=== PATIENT | female | born 1995 | race Caucasian/White ===

== ENCOUNTER 2017-02-24 08:50 | Emergency (ER) | payer SELFPAY ==
[2017-02-24] MEDS ORDERED: IBUPROFEN 600 MG TAB PO STA (10:08)
[2017-02-24] MEDS ORDERED: ACETAMINOPHEN TAB 500 MG TAB PO STA (10:08)
--- NOTE | 2017-02-24 10:15 | ED ---
URI HPI - General Chief Complaint: Upper Respiratory Infection Stated Complaint: COUGHING Source: patient, RN notes reviewed Mode of arrival: ambulatory - History of Present Illness Initial Comments: 22 yo female presents with chief complaint of cough cold like symptoms. Patient states she's had a cough ear pain throat pain and headache nausea for the past 3 or 4 days. Patient states every day just seems to be worsening. Patient denies any body aches. Patient states that she has been able to eat and drink but she just feels ill. Patient states she was concerned because she continued to worsen so she thought that she should be evaluated. Patient denies any back pain with this states that she has had a little better. She will. Patient denies any neck pain. Patient denies any recent shortness of breath, chest pain, back pain, abdominal pain, vomiting, numbness or tingling, dysuria or hematuria, constipation or diarrhea, headaches or visual changes, or any other current symptoms. - Related Data Home Medications Medication Instructions Recorded Confirmed Acetaminophen [Tylenol] 650 mg PO Q4H PRN 02/24/17 02/24/17 Previous Rx's Medication Instructions Recorded Albuterol Inhaler [Ventolin Hfa 1 - 2 puff INHALATION Q4-6H PRN #1 02/24/17 Inhaler] inhaler predniSONE 50 mg PO DAILY #5 tab 02/24/17 Allergies Allergy/AdvReac Type Severity Reaction Status Date / Time clindamycin Allergy Rash/Hives Verified 02/24/17 09:49 erythromycin base Allergy Rash/Hives Verified 02/24/17 09:49 Penicillins Allergy Unknown Verified 02/24/17 09:49 Childhood pineapple Allergy Swelling Verified 02/24/17 09:49 Review of Systems ROS Statement: Those systems with pertinent positive or pertinent negative responses have been documented in the HPI. ROS Other: All systems not noted in ROS Statement are negative. Past Medical History Additional Past Medical History / Comment(s): migraines History of Any Multi-Drug Resistant Organisms: None Reported Past Surgical History: No Surgical Hx Reported Past Psychological History: No Psychological Hx Reported Smoking Status: Former smoker Past Alcohol Use History: None Reported Past Drug Use History: Marijuana General Exam - General Exam Comments Initial Comments: General exam: Alert, active, comfortable in no apparent distress Head: Normocephalic Eyes: Normal reaction of pupils, equal size, normal range of extraocular motion Ears: normal external ear canals, pink tympanic membranes with normal cone of light Nose: clear with pink turbinates Throat: no erythema or exudates with normal sized tonsils Neck: no masses, no nuchal rigidity Chest: no chest wall deformity Lungs: equal air entry with no crackles with minimal wheeze CVS: S1 and S2 normal with no audible mumurs, regular rhythm Abdomen: no hepatosplenomegaly, normal bowel sounds, no guarding or rigidity Spine: no scoliosis or deformity Skin: no rashes Neurological: No focal deficits, tone is normal in all 4 extremities Course Vital Signs 02/24/17 02/24/17 09:10 10:08 Temperature 98.5 F 97.8 F Pulse Rate 64 60 Respiratory 18 18 Rate Blood Pressure 151/74 111/61 O2 Sat by Pulse 96 97 Oximetry Medical Decision Making - Medical Decision Making 22-year-old female presents emergency Department chief complaint of cough cold runny nose like symptoms. At this time patient does appear to have bronchitis on chest x-ray with minimal wheeze. We'll start her on steroids and an inhaler for home. We did give her a DuoNeb prior to discharge. As discussed with patient and she is in agreement with the plan. All questions have been answered. She will be discharged home. - Lab Data Lab Results 02/24/17 02/24/17 Range/Units 10:10 10:10 Influenza Type A RNA Not Detected (Not Detectd) Influenza Type B (PCR) Not Detected (Not Detectd) Group A Strep Rapid Negative (Negative) Disposition Clinical Impression: Acute bronchitis Disposition: HOME SELF-CARE Condition: Stable Instructions: Acute Bronchitis (ED) Additional Instructions: Please use medication as discussed. Please follow up with family doctor if symptoms have not improved over the next two days. Please return to the emergency room if your symptoms increase or worsen or for any other concerns. Prescriptions: Albuterol Inhaler [Ventolin Hfa Inhaler] 1 - 2 puff INHALATION Q4-6H PRN #1 inhaler PRN Reason: Cough predniSONE 50 mg PO DAILY #5 tab Referrals: Zach Fernández MD [Primary Care Provider] - 1-2 days Time of Disposition: 11:32
--- NOTE | 2017-02-24 11:20 | XR ---
EXAMINATION TYPE: XR chest 2V DATE OF EXAM: 02/24/2017 11:08 AM COMPARISON: 01/13/1998 HISTORY: 22-year-old female with cough TECHNIQUE: PA and lateral views FINDINGS: The cardiomediastinal silhouette, aorta, and pulmonary vasculature are within normal limits. Some per ibronchial cuffing. Otherwise, lungs and pleural spaces are clear. IMPRESSION: Some peribronchial cuffing could represent bronchitis or chronic asthma. No acute infiltrate.
[2017-02-24] MEDS ORDERED: IPRATROPIUM-ALBUTEROL 3 ML NEB INHALATION STA (11:27)
[2017-02-24 12:02] VITALS: BP 120/67; PULSE 54; RESP 16; TEMP 98.4
== END 2017-02-24 12:00 | disposition home or self-care (01) ==
LOC: EC 08:50
DX: J20.9 Acute bronchitis, unspecified (principal); R11.0 Nausea; Z87.891 Personal history of nicotine dependence; Z88.0 Allergy status to penicillin; Z88.1 Allergy status to other antibiotic agents; Z91.018 Allergy to other foods
CPT/HCPCS: 71020; 87430; 87502; 94640; 99284

== ENCOUNTER 2019-03-10 10:38 | Emergency (ER) | payer BC, OTHER ==
[2019-03-10 10:51] VITALS: RESP 20
[2019-03-10] MEDS ORDERED: SODIUM CHLORIDE 0.9% 1,000 ML IV ONE (12:05)
[2019-03-10] MEDS ORDERED: ONDANSETRON 4 MG/2 ML VIAL IVP STA (12:05)
[2019-03-10] MEDS ORDERED: KETOROLAC 30 MG/ML 1 ML VIAL IVP STA (12:05)
[2019-03-10] MEDS ORDERED: SODIUM CHLORIDE 0.9% 1,000 ML IV SCH (12:15)
[2019-03-10 12:53] LABS: Basophils % (A) 0 %; Eosinophils # (A) 0.1 k/uL (0-0.7); Eosinophils % (A) 1 %; HCT 42.5 % (34.0-46.0); HGB 13.8 gm/dL (11.4-16.0); Lymphocytes # (A) 1.1 k/uL (1.0-4.8); Lymphocytes % (A) 13 %; MCH 26.4 pg (25.0-35.0); MCHC 32.5 g/dL (31.0-37.0); MCV 81.3 fL (80.0-100.0); Mean Platelet Volume 7.8; Monocytes # (A) 0.5 k/uL (0-1.0); Monocytes % (A) 6 %; Neutrophils # (A) 6.9 k/uL (1.3-7.7); Neutrophils % (A) 79 %; Platelet Count 235 k/uL (150-450); RBC 5.23 m/uL (3.80-5.40); RDW 13.1 % (11.5-15.5); WBC 8.8 k/uL (3.8-10.6)
--- NOTE | 2019-03-10 12:55 | ED ---
General Adult HPI - General Chief complaint: Upper Respiratory Infection Stated complaint: wants flu swab Time Seen by Provider: 03/10/19 11:33 Source: patient, RN notes reviewed, old records reviewed Mode of arrival: ambulatory Limitations: no limitations - History of Present Illness Initial comments: 24-year-old female presents for his hours a with cough congestion runny nose. Patient states that she is having some vomiting and diarrhea for the past 2 days. She denies any chest pain or shortness breath. - Related Data Previous Rx's Medication Instructions Recorded Ondansetron Odt [Zofran Odt] 4 mg PO Q8HR PRN #12 tab 03/10/19 Allergies Allergy/AdvReac Type Severity Reaction Status Date / Time clindamycin Allergy Rash/Hives Verified 03/10/19 11:16 erythromycin base Allergy Rash/Hives Verified 03/10/19 11:16 Penicillins Allergy Unknown Verified 03/10/19 11:16 Childhood pineapple Allergy Swelling Verified 03/10/19 11:16 Review of Systems ROS Statement: Those systems with pertinent positive or pertinent negative responses have been documented in the HPI. ROS Other: All systems not noted in ROS Statement are negative. Past Medical History Additional Past Medical History / Comment(s): migraines History of Any Multi-Drug Resistant Organisms: None Reported Past Surgical History: No Surgical Hx Reported Past Psychological History: No Psychological Hx Reported Smoking Status: Former smoker Past Alcohol Use History: None Reported Past Drug Use History: Marijuana General Exam Limitations: no limitations Course Vital Signs 03/10/19 10:48 Temperature 98.8 F Pulse Rate 97 Respiratory 20 Rate Blood Pressure 129/74 O2 Sat by Pulse 97 Oximetry Medical Decision Making - Lab Data Result diagrams: 03/10/19 12:38 03/10/19 12:38 Lab Results 03/10/19 03/10/19 03/10/19 Range/Units 11:36 12:38 12:38 WBC 8.8 (3.8-10.6) k/uL RBC 5.23 (3.80-5.40) m/uL Hgb 13.8 (11.4-16.0) gm/dL Hct 42.5 (34.0-46.0) % MCV 81.3 (80.0-100.0) fL MCH 26.4 (25.0-35.0) pg MCHC 32.5 (31.0-37.0) g/dL RDW 13.1 (11.5-15.5) % Plt Count 235 (150-450) k/uL Neutrophils % 79 % Lymphocytes % 13 % Monocytes % 6 % Eosinophils % 1 % Basophils % 0 % Neutrophils # 6.9 (1.3-7.7) k/uL Lymphocytes # 1.1 (1.0-4.8) k/uL Monocytes # 0.5 (0-1.0) k/uL Eosinophils # 0.1 (0-0.7) k/uL Basophils # 0.0 (0-0.2) k/uL Sodium 138 (137-145) mmol/L Potassium 4.5 (3.5-5.1) mmol/L Chloride 103 (98-107) mmol/L Carbon Dioxide 24 (22-30) mmol/L Anion Gap 11 mmol/L BUN 9 (7-17) mg/dL Creatinine 0.56 (0.52-1.04) mg/dL Est GFR (CKD-EPI)AfAm >90 (>60 ml/min/1.73 sqM) Est GFR (CKD-EPI)NonAf >90 (>60 ml/min/1.73 sqM) Glucose 94 (74-99) mg/dL Calcium 9.6 (8.4-10.2) mg/dL Total Bilirubin 0.7 (0.2-1.3) mg/dL AST 23 (14-36) U/L ALT 30 (9-52) U/L Alkaline Phosphatase 81 (38-126) U/L Total Protein 7.9 (6.3-8.2) g/dL Albumin 4.7 (3.5-5.0) g/dL Influenza Type A RNA Not Detected (Not Detectd) Influenza Type B (PCR) Not Detected (Not Detectd) Disposition Clinical Impression: Viral syndrome, Nausea & vomiting Disposition: HOME SELF-CARE Condition: Good Instructions (If sedation given, give patient instructions): Upper Respiratory Infection (ED), Acute Nausea and Vomiting (ED) Additional Instructions: Patient has follow-up with primary care doctor. Return to emergency department if any alarming symptoms occur. Take the nausea medicine as needed. Alternating to Motrin and Tylenol as discussed. Prescriptions: Ondansetron Odt [Zofran Odt] 4 mg PO Q8HR PRN #12 tab PRN Reason: Nausea Is patient prescribed a controlled substance at d/c from ED?: No Referrals: Zach Fernández MD [Primary Care Provider] - 1-2 days Time of Disposition: 14:28
[2019-03-10 13:04] LABS: ALT 30 U/L (9-52); AST 23 U/L (14-36); Albumin 4.7 g/dL (3.5-5.0); Alkaline Phosphatase 81 U/L (38-126); Anion Gap 11 mmol/L; Blood Urea Nitrogen 9 mg/dL (7-17); Calcium 9.6 mg/dL (8.4-10.2); Carbon Dioxide 24 mmol/L (22-30); Chloride 103 mmol/L (98-107); Glucose 94 mg/dL (74-99); Potassium 4.5 mmol/L (3.5-5.1); Sodium 138 mmol/L (137-145); Total Bilirubin 0.7 mg/dL (0.2-1.3); Total Protein 7.9 g/dL (6.3-8.2)
--- NOTE | 2019-03-10 14:22 | XR ---
EXAMINATION TYPE: XR chest 2V DATE OF EXAM: 03/10/2019 COMPARISON: NONE HISTORY: Cough, nausea, vomiting and headache TECHNIQUE: Frontal and lateral views of the chest are obtained. FINDINGS: There is no focal air space opacity, pleural effusion, or pneumothorax seen. The cardiac silhouette size is within normal limits. The osseous structures are intact. IMPRESSION: No acute cardiopulmonary process.
[2019-03-10 14:41] VITALS: BP 128/69; PULSE 72; TEMP 98.9
== END 2019-03-10 14:40 | disposition home or self-care (01) ==
LOC: EC 10:38
DX: B34.9 Viral infection, unspecified (principal); R11.2 Nausea with vomiting, unspecified; Z87.891 Personal history of nicotine dependence; Z88.0 Allergy status to penicillin; Z88.1 Allergy status to other antibiotic agents; Z91.018 Allergy to other foods
CPT/HCPCS: 36415; 80053; 85025; 87502; 71046; 99284; 96374; 96375; 96361 ×2; J2405; J1885

== ENCOUNTER 2019-06-06 11:05 | Emergency (ER) | payer OTHER ==
[2019-06-06 11:30] VITALS: BP 121/84; PULSE 57; RESP 16; TEMP 98.1
--- NOTE | 2019-06-06 12:00 | ED ---
ENT HPI - General Chief complaint: ENT Stated complaint: Headhache, puffy eyes Time Seen by Provider: 06/06/19 11:46 Source: patient Mode of arrival: ambulatory Limitations: no limitations - History of Present Illness Initial comments: Patient is a 24-year-old female presenting to emergency Department with complaints of irritation of the right eye 2 days. Patient states she wears contacts ones and slept in her contacts 2 days ago. Patient states she woke up the next 2 mornings with yellow crusting of her right eye and some irritation. Patient states today her eyes seems to be a little bit red and the crusting has continued. Patient states she has not worn her contacts since she slept in them and then has been wearing her glasses. Patient denies any fever, chills, or changes in her vision. Patient has no other complaints at this time. - Related Data Previous Rx's Medication Instructions Recorded Ondansetron Odt [Zofran Odt] 4 mg PO Q8HR PRN #12 tab 03/10/19 Levofloxacin 0.5% Ophth Soln 1 drop RIGHT EYE Q6HR 5 Days #1 06/06/19 [Quixin Ophth Soln] bottle Polymyxin B-Trimeth Sulf Ophth 1 drops RIGHT EYE Q4H 7 Days #1 06/06/19 [Polytrim Opthalmic] bottle Allergies Allergy/AdvReac Type Severity Reaction Status Date / Time clindamycin Allergy Rash/Hives Verified 06/06/19 11:30 erythromycin base Allergy Rash/Hives Verified 06/06/19 11:30 Penicillins Allergy Unknown Verified 06/06/19 11:30 Childhood pineapple Allergy Swelling Verified 06/06/19 11:30 Review of Systems ROS Statement: Those systems with pertinent positive or pertinent negative responses have been documented in the HPI. ROS Other: All systems not noted in ROS Statement are negative. Past Medical History Additional Past Medical History / Comment(s): migraines History of Any Multi-Drug Resistant Organisms: None Reported Past Surgical History: No Surgical Hx Reported Past Psychological History: No Psychological Hx Reported Smoking Status: Former smoker Past Alcohol Use History: None Reported Past Drug Use History: Marijuana General Exam - General Exam Comments Initial Comments: GENERAL: Well-appearing, well-nourished and in no acute distress. HEAD: Atraumatic, normocephalic. EYES: Pupils equal round and reactive to light, extraocular movements intact, sclera anicteric, conjunctiva are normal. Patient has some mild yellow discharge from the right eye. There is some mild surrounding erythema. ENT: Nares patent, oropharynx clear without exudates. Moist mucous membranes. NECK: Normal range of motion, supple without lymphadenopathy or JVD. LUNGS: Breath sounds clear to auscultation bilaterally and equal. No wheezes rales or rhonchi. HEART: Regular rate and rhythm without murmurs, rubs or gallops. ABDOMEN: Soft, nontender, normoactive bowel sounds. No guarding, no rebound. No masses appreciated. : Deferred EXTREMITIES: Normal range of motion, no pitting or edema. No clubbing or cyanosis. NEUROLOGICAL: Cranial nerves II through XII grossly intact. Normal speech, normal gait. PSYCH: Normal mood, normal affect. SKIN: Warm, Dry, normal turgor, no rashes or lesions noted. Limitations: no limitations Course Vital Signs 06/06/19 11:27 Temperature 98.1 F Pulse Rate 57 L Respiratory 16 Rate Blood Pressure 121/84 O2 Sat by Pulse 94 L Oximetry Medical Decision Making - Medical Decision Making Patient is a 24-year-old female complaining of right eye irritation and mild redness x 2 days. Patient states she slipped in her contact lens approximately 2 days ago and the next morning she had some clear to yellow discharge from the eye and then again this morning. Patient states she noticed a little bit of redness and puffiness of her right eyes she decided to come in. On exam patient has some very mild yellow discharge from the right eye and some mild surrounding erythema. Patient's visual acuity is normal. Patient will be given antibiotic eyedrops to use to prevent infection. Discussed with patient not asleep in her contact lens and to not use her contact lens for another week. Patient will follow up with ophthalmology if symptoms continue or worsen. Return parameters were discussed with patient she verbalized understanding. Patient will be discharged home. Disposition Clinical Impression: Conjunctivitis, right eye Disposition: HOME SELF-CARE Condition: Stable Instructions (If sedation given, give patient instructions): Conjunctivitis (ED) Additional Instructions: Please return to the Emergency Department if symptoms worsen or any other concerns. Follow-up with PCP or ophthalmology if symptoms continue. Continue to use warm compresses in the right eye. Prescriptions: Polymyxin B-Trimeth Sulf Ophth [Polytrim Opthalmic] 1 drops RIGHT EYE Q4H 7 Days #1 bottle Levofloxacin 0.5% Ophth Soln [Quixin Ophth Soln] 1 drop RIGHT EYE Q6HR 5 Days #1 bottle Is patient prescribed a controlled substance at d/c from ED?: No Referrals: Zach Fernández MD [Primary Care Provider] - 1-2 days
== END 2019-06-06 12:26 | disposition home or self-care (01) ==
LOC: EC 11:05
DX: H10.9 Unspecified conjunctivitis (principal); R51 Headache; Z86.69 Personal history of other diseases of the nervous system and sense organs; Z87.891 Personal history of nicotine dependence; Z88.0 Allergy status to penicillin; Z88.1 Allergy status to other antibiotic agents; Z91.018 Allergy to other foods
CPT/HCPCS: 99283

== ENCOUNTER 2020-05-23 08:46 | Emergency (ER) | payer BC, OTHER ==
[2020-05-23 08:52] VITALS: BP 126/84; PULSE 71; RESP 16; TEMP 98.2
--- NOTE | 2020-05-23 09:07 | ED ---
General Adult HPI - General Chief complaint: ENT Stated complaint: sore throat/swollen tonsils Time Seen by Provider: 05/23/20 08:57 Source: patient Mode of arrival: ambulatory Limitations: no limitations - History of Present Illness Initial comments: Dictation was produced using [employer] dictation software. please excuse any grammatical, word or spelling errors. This patient was cared for during a federal and state declared state of emergency secondary to Covid 19 Chief Complaint: 25-year-old female with sore throat History of Present Illness: 25-year-old. She presents today with sore throat. She tried to go to work. Patient's employee at [employer]. She apparently had some adenopathy of the cervical chain. She was told to go home for concerns of coronal virus. Patient denies any fevers. No chills or night sweats. No abdominal pain. No loss of taste or smell. The ROS documented in this emergency department record has been reviewed and confirmed by me. Those systems with pertinent positive or negative responses have been documented in the HPI. All other systems are other negative and/or noncontributory. PHYSICAL EXAM: General Impression: Alert and oriented x3, not in acute distress HEENT: Normocephalic atraumatic, extra-ocular movements intact, pupils equal and reactive to light bilaterally, mucous membranes moist, minimal exudates to the bilateral tonsils, no peritonsillar fullness, mild adenopathy to anterior cervical chain on the right, tobacco membranes bilaterally are clear Cardiovascular: Heart regular rate and rhythm Chest: Able to complete full sentences, no retractions, no tachypnea Abdomen: abdomen soft, non-tender, non-distended, no organomegaly Musculoskeletal: Pulses present and equal in all extremities, no peripheral edema Motor: no focal deficits noted Neurological: CN II-XII grossly intact, no focal motor or sensory deficits noted Skin: Intact with no visualized rashes Psych: Normal affect and mood ED course: 25-year-old female presents with sore throat. Vital signs upon arrival are within acceptable limits. Clinical presentation consistent with viral pharyngitis.Primary strep test is negative. Patient pending coronavirus testing. Patient clear for discharge. She is advised follow-up with a primary care physician. Pending strep culture and coronavirus testing. - Related Data Previous Rx's Medication Instructions Recorded Ondansetron Odt [Zofran Odt] 4 mg PO Q8HR PRN #12 tab 03/10/19 Levofloxacin 0.5% Ophth Soln 1 drop RIGHT EYE Q6HR 5 Days #1 06/06/19 [Quixin Ophth Soln] bottle Polymyxin B-Trimeth Sulf Ophth 1 drops RIGHT EYE Q4H 7 Days #1 06/06/19 [Polytrim Opthalmic] bottle Allergies Allergy/AdvReac Type Severity Reaction Status Date / Time clindamycin Allergy Rash/Hives Verified 05/23/20 08:48 erythromycin base Allergy Rash/Hives Verified 05/23/20 08:48 Penicillins Allergy Unknown Verified 05/23/20 08:48 Childhood pineapple Allergy Swelling Verified 05/23/20 08:48 Review of Systems ROS Statement: Those systems with pertinent positive or pertinent negative responses have been documented in the HPI. ROS Other: All systems not noted in ROS Statement are negative. Past Medical History Past Medical History: No Reported History Additional Past Medical History / Comment(s): migraines, pcos History of Any Multi-Drug Resistant Organisms: None Reported Past Surgical History: No Surgical Hx Reported Past Psychological History: No Psychological Hx Reported Smoking Status: Former smoker Past Alcohol Use History: None Reported Past Drug Use History: Marijuana General Exam Limitations: no limitations Course Vital Signs 05/23/20 08:48 Temperature 98.2 F Pulse Rate 71 Respiratory 16 Rate Blood Pressure 126/84 O2 Sat by Pulse 97 Oximetry Medical Decision Making - Lab Data Lab Results 05/23/20 Range/Units 09:10 Group A Strep Rapid Negative (Negative) Disposition Clinical Impression: Sore throat Disposition: HOME SELF-CARE Condition: Good Instructions (If sedation given, give patient instructions): Pharyngitis (ED) Is patient prescribed a controlled substance at d/c from ED?: No Referrals: Zach Fernández MD [Primary Care Provider] - 1-2 days Time of Disposition: 10:14
== END 2020-05-23 10:43 | disposition home or self-care (01) ==
LOC: EC 08:46
DX: Z20.828 Contact with and (suspected) exposure to other viral communicable diseases (principal); J02.9 Acute pharyngitis, unspecified; Z88.1 Allergy status to other antibiotic agents; Z88.0 Allergy status to penicillin; Z91.018 Allergy to other foods; Z87.891 Personal history of nicotine dependence
CPT/HCPCS: 87081; 87430; 99283; U0003

== ENCOUNTER → 2022-09-06 | Outpatient (CLI) | payer BC ==
--- NOTE | 2022-09-06 16:00 | US ---
EXAMINATION TYPE: US thyroid st tissue head/neck DATE OF EXAM: 09/06/2022 COMPARISON: NONE CLINICAL HISTORY: E04.9 NONTOXIC GOITER, UNSPECIFIED. GLAND SIZE: Right Lobe: 4.8 x 1.1 x 1.6 cm Overall Parenchyma: homogenous Left Lobe: 4.8 x 1.1 x 1.3 cm Overall Parenchyma: homogeneous Isthmus Thickness: 0.2 cm NODULES RIGHT: # of nodules measured on right: 1 1. 0.9 X 0.6 x 0.8 cm, upper lateral, TIRADS Score: 4 TIRADS Category 4: Moderately Suspicious Composition: Solid or almost completely solid (2 points). Echogenicity: Hypoechoic (2 points). Shape: Wider than tall (0 points). Margin: Smooth (0 points). Echogenic foci: None or large comet-tail artifacts (0 points) Recommendation: If >1.5cm: FNA; If >1cm: Follow up at 1,3,5 years LEFT: # of nodules measured on left: 0 ISTHMUS: # of nodules measured in the isthmus: 0 Bilateral neck scanned, no evidence of lymphadenopathy. IMPRESSION: Right thyroid nodule follow-up 1 year is recommended.
== END | disposition home or self-care (01) ==
LOC: RADUSWWP 15:30
PROVIDERS: ATTEND Family Medicine
DX: E04.9 Nontoxic goiter, unspecified (principal)
CPT/HCPCS: 76536

== ENCOUNTER 2025-03-09 11:04 | Day surgery (SDC) | payer BC ==
[2025-03-09 12:19] VITALS: RESP 16; TEMP 97.8
[2025-03-09] MEDS: IV FLUID CONTINUATION 1,000 ML IV ONE (12:32)
[2025-03-09] MEDS: LACTATED RINGERS 1,000 ML IV SCH (12:35)
[2025-03-09] MEDS: LIDOCAINE 1% (10MG/ML) FOR IV START INTRADERMA PRN (12:35)
[2025-03-09] MEDS ORDERED: PROPOFOL 10 MG/ML 20 ML VIAL IV ONE (12:45)
[2025-03-09] MEDS ORDERED: LIDOCAINE 1% INJ 10MG/ML (20 ML MDV) ONE (12:45)
--- NOTE | 2025-03-09 13:03 | P.PCN ---
Date of Procedure: 03/09/25 Procedure(s) Performed: BRIEF HISTORY: Patient is a 30-year-old, pleasant, white female scheduled for an upper endoscopy as a part evaluation of chronic intermittent nausea vomiting of 7 months duration. She was recently started on omeprazole 20 mg daily and the symptoms are gradually improving. PROCEDURE PERFORMED: Esophagogastroduodenoscopy with biopsy. PREOPERATIVE DIAGNOSIS: Chronic intermittent nausea vomiting of several months duration. IV sedation per anesthesia. PROCEDURE: After informed consent was obtained, the patient was brought into the endoscopy unit. IV sedation was administered by Anesthesia under continuous monitoring. Initially the Olympus GIF-140 video endoscope was inserted into the mouth. Esophagus intubated without any difficulty. It was gradually advanced into the stomach and duodenum and carefully examined. The bulb and the second part of the duodenum appeared normal. Biopsies were done from the duodenum to rule out celiac disease. The scope at this time was withdrawn to the stomach, adequately insufflated with air, and upon careful examination, mucosa of the antrum, had multiple scattered erosions consistent with gastritis and biopsies were done from this area. Mucosa body, cardia and the fundus appeared normal. The scope was then withdrawn into the esophagus. The GE junction was located at 39 cm from the incisors. There were 2 superficial erosions in the distal esophagus consistent with LA grade B reflux esophagitis. Rest of the esophagus appeared normal and the patient tolerated the procedure well. IMPRESSION: 1. 2 superficial erosions in the distal esophagus consistent with LA grade B reflux esophagitis. 2. Antral erosive gastritis. RECOMMENDATIONS: The findings of this examination were discussed with the patient as well as her family. She was advised to follow-up with the biopsy results. Continue with omeprazole 20 mg daily and follow antireflux measures..
[2025-03-09 13:13] VITALS: BP 122/83; PULSE 83
== END 2025-03-09 13:45 | disposition home or self-care (01) ==
LOC: ORWHC2ENDO 11:04
PROVIDERS: ATTEND Internal Medicine Gastroenterology
DX: K29.50 Unspecified chronic gastritis without bleeding (principal); K21.00 Gastro-esophageal reflux disease with esophagitis, without bleeding; D72.820 Lymphocytosis (symptomatic); J45.909 Unspecified asthma, uncomplicated; F12.90 Cannabis use, unspecified, uncomplicated; F32.A Depression, unspecified; F41.0 Panic disorder [episodic paroxysmal anxiety]; G43.909 Migraine, unspecified, not intractable, without status migrainosus; Z88.0 Allergy status to penicillin; Z88.1 Allergy status to other antibiotic agents; Z79.899 Other long term (current) drug therapy
CPT/HCPCS: 88305; 43239; J2003; J2704